=== PATIENT | male | born 1975 | race Caucasian/White ===

== ENCOUNTER 2022-07-03 15:33 | Emergency (ER) | payer OTHER ==
[~2022-07-03] VITALS: Ht 195.6 cm; Wt 93.0 kg
[2022-07-03 15:48] VITALS: BP 135/81
--- NOTE | 2022-07-03 15:55 | NUR ---
here for okay to book hx of HTN takes carvedilol 12.5 mg bd took meds today am, denies any pain, reports feeling anxious
[2022-07-03] MEDS ORDERED: carvediloL 6.25 MG TAB PO ONE (16:00)
[2022-07-03 16:14] VITALS: BP 135/81
--- NOTE | 2022-07-03 16:14 | NUR ---
PATIENT [facility] [employer] DEPT. PATIENT EXAMINED BY DR. HOLDER. PATIENT MEDICALLY CLEARED AND RELEASED IN CUSTODY IN STABLE CONDITION. ORIGINAL PRE-BOOK FORM GIVEN TO OFFICER.
== END 2022-07-03 16:14 ==
LOC: MED 15:33
DX: I10 Essential (primary) hypertension (principal); Z79.899 Other long term (current) drug therapy
CPT/HCPCS: 99283